=== PATIENT | male | born 1960 | race Caucasian/White ===

== ENCOUNTER 2018-08-08 03:39 | Inpatient (IN) | payer BC, OTHER ==
[~2018-08-08] VITALS: Ht 177.8 cm; Wt 77.1 kg
--- NOTE | 2018-08-08 03:50 | NUR ---
Pt to room via w/c on O2. pt getting dressed in room with family member and tech assist.
--- NOTE | 2018-08-08 03:55 | NUR ---
Pt O2 sat in 50's and 60's on NC. Pt placed on 15L non rebreather, pt O2 sat slowly rising. MD to see pt RUDI.
--- NOTE | 2018-08-08 03:59 | NUR ---
MD to bedside for pt eval.
--- NOTE | 2018-08-08 04:15 | NUR ---
Pt and pt SO report pt having fever, cough, and diarrhea since . pt SO states a few days after sx started pt SO noted pt breathing shallow. Pt states breathing continued to be difficulty after fever "broke" and cough continued as well. pt states sputum clear. Pt states he came in "because I couldn't take it anymore." pt smokes daily and drinks daily, denies withdrawal hx. pt conversing well but increased WOB noted. Pt a/ox4, calm and pleasant.
--- NOTE | 2018-08-08 04:20 | NUR ---
MAYANKG completed. Addendum: 08/08/18 at 0555 by REGGIE By ALLIE Reyes.
--- NOTE | 2018-08-08 04:22 | NUR ---
IV placed, blood drawn, first set of blood cultures drawn. Pt continues on monitor, pt continues with increased WOB, 15L via nonrebreather. SO at bedside. pt calm and cooperative.
--- NOTE | 2018-08-08 04:29 | NUR ---
Pt moved to trauma 3 room for intubation. Provider to bedside for pt update and education about intubation, pt verbalized understanding of MD explanation. Second IV in progress. RT to bedside.
[2018-08-08] MEDS ORDERED: AZITHROMYCIN 500 MG in SODIUM CHLORIDE 0.9% 250 ML IVPB ONE (04:30)
[2018-08-08] MEDS ORDERED: CEFTRIAXONE PMX 1GM/50ML 50 ML IV ONE (04:30)
[2018-08-08] MEDS ORDERED: SODIUM CHLORIDE 0.9% 1,000ML IVBOLUS ONE (04:30)
[2018-08-08] MEDS ORDERED: ASPIRIN 81 MG TABLET CHEW PO ONE (04:30)
[2018-08-08 04:33] LABS: BASOPHILS # (AUTO) 0.01 x10^3/uL (0-0.1); BASOPHILS % (AUTO) 0 % (0-1); EOSINOPHILS % (AUTO) 0 % (1-7); LYMPHOCYTES # (AUTO) 0.31 x10^3/uL (1-3.4); LYMPHOCYTES % (AUTO) 5 % (22-44); MD NO; MEAN CORPUSCULAR HEMOGLOBIN 33.9 pg (27.5-34.5); MEAN PLATELET VOLUME 7.1 fL (7.4-10.4); MONOCYTES # (AUTO) 0.05 x10^3/uL (0.2-0.8); MONOCYTES % (AUTO) 1 % (2-9); NEUTROPHILS # (AUTO) 6.09 x10^3/uL (1.8-6.8); NEUTROPHILS % (AUTO) 94 % (42-75); PLATELET COUNT 156 x10^3/uL (130-400); RED BLOOD COUNT 4.21 x10^6/uL (4.38-5.82); RED CELL DISTRIBUTION WIDTH 13.2 % (9.4-14.8)
--- NOTE | 2018-08-08 04:37 | NUR ---
REPORT FROM MAURO HIGH FLOWM O2 PLACED BY RT, PT IN NAD AT THIS TIME TALKATIVE AND PLEASENT
--- NOTE | 2018-08-08 04:38 | NUR ---
Second IV in place. Lab at bedside for second set of BC and ABG.
--- NOTE | 2018-08-08 04:40 | NUR ---
Report to Sandi ALCANTAR who will assume care of pt.
[2018-08-08] MEDS ORDERED: CEFTRIAXONE PMX 1GM/50ML 50 ML ONE (04:41)
[2018-08-08] MEDS ORDERED: ASPIRIN 81 MG TABLET CHEW ONE (04:41)
[2018-08-08 04:46] LABS: ALBUMIN 2.9 g/dL (3.4-5.0); ANION GAP 16 mmol/L (5-15); CALCIUM 7.6 mg/dL (8.5-10.1); CHLORIDE 80 mmol/L (98-107)
[2018-08-08 04:52] LABS: RAPID INFLUENZA A Negative (Negative); RAPID INFLUENZA B Negative (Negative)
[2018-08-08 04:53] LABS: CREATININE 0.76 mg/dL (0.7-1.3); TROPONIN I < 0.015 ng/mL (0.000-0.045)
[2018-08-08] MEDS ORDERED: ONDANSETRON 2MG/ML, 2ML ONE (04:58)
--- NOTE | 2018-08-08 05:20 | NUR ---
PT RESTING NAD AT THIS TIME VSS
[2018-08-08 05:34] LABS: ALANINE AMINOTRANSFERASE 19 U/L (12-78); ALBUMIN 2.5 g/dL (3.4-5.0); ANION GAP 12 mmol/L (5-15); CALCIUM 7.3 mg/dL (8.5-10.1); CHLORIDE 84 mmol/L (98-107); CREATININE 0.71 mg/dL (0.7-1.3)
[2018-08-08 05:36] LABS: ALKALINE PHOSPHATASE 42 U/L (45-117); BILIRUBIN,TOTAL 0.4 mg/dL (0.2-1.0); TOTAL PROTEIN 5.8 g/dL (6.4-8.2)
[2018-08-08] MEDS ORDERED: OMNIPAQUE 350 MG/ML, 100ML BOTTLE ONE (06:00)
--- NOTE | 2018-08-08 06:20 | NUR ---
PT TO AND BACK FROM CT IN NAD
[2018-08-08] MEDS ORDERED: SODIUM CHLORIDE 0.9% 1,000 ML IV SCH (07:14)
--- NOTE | 2018-08-08 07:21 | NUR ---
Report given to [facility]. Awaiting Dr. Myles for admit orders.
--- NOTE | 2018-08-08 07:27 | NUR ---
Pt's SPO2 decreased to 90%, optiflow cannula readjusted. RT Junior aware,sats improved after readjustment.
[2018-08-08] MEDS ORDERED: POLYETHYLENE GLYCOL 17 GM PACKET PO PRN (07:30)
[2018-08-08] MEDS ORDERED: BISACODYL 10 MG SUPP PR PRN ×2 (07:30→18:30)
[2018-08-08] MEDS ORDERED: PANTOPRAZOLE 40 MG IV IVPush SCH (07:30)
--- NOTE | 2018-08-08 07:54 | NUR ---
Late entry: Took pt for CT head prior to transfer to CCU.
[2018-08-08 07:57] LABS: THYROID STIMULATING HORMONE 0.528 mIU/L (0.358-3.740)
[2018-08-08] MEDS ORDERED: SUCCINYLCHOLINE 20 MG/ML, 10ML ONE (08:00)
[2018-08-08] MEDS ORDERED: PROPOFOL 10 MG/ML, 100ML IV ONE (08:00)
[2018-08-08] MEDS ORDERED: MIDAZOLAM 1 MG/ML, 5ML ONE ×2 (08:00→18:27)
[2018-08-08] MEDS ORDERED: POTASSIUM CHLORIDE 40 MEQ in SODIUM CHLORIDE 0.9% 500 ML IV ONE (08:30)
[2018-08-08] MEDS ORDERED: CALCIUM GLUCONATE 9.2 MEQ in SODIUM CHLORIDE 0.9% 100 ML IV ONE (08:30)
[2018-08-08 09:19] LABS: ANION GAP 13 mmol/L (5-15); CALCIUM 7.5 mg/dL (8.5-10.1); CHLORIDE 86 mmol/L (98-107)
[2018-08-08] MEDS ORDERED: MAGNESIUM SULFATE PMX 4GM/100M 100 ML IV ONE (09:30)
[2018-08-08] MEDS: POTASSIUM CHLORIDE 20 MEQ TAB.ER.PRT PO SCH ×2 (09:50→17:00)
[2018-08-08] MEDS ORDERED: POTASSIUM CHLORIDE 20 MEQ, MAGNESIUM SULFATE 1 GM, FOLIC ACID 1 MG, THIAMINE 200 MG, MV... IV SCH (10:00)
[2018-08-08 10:30] LABS: POTASSIUM,URINE RANDOM 2 mmol/L
[2018-08-08 10:43] LABS: CHLORIDE,URINE RANDOM < 10 mmol/L; SODIUM,URINE RANDOM < 5 mmol/L
[2018-08-08 10:51] LABS: MICROSCOPIC INDICATED
[2018-08-08 10:58] VITALS: BP 140/76
[2018-08-08 11:18] VITALS: BP 123/74
[2018-08-08 11:30] LABS: OSMOLALITY,URINE 185 mOsm/kg (500-850)
[2018-08-08 13:26] LABS: HCT (SEDRATE) 38.9 % (39.2-51.8)
[2018-08-08 13:27] LABS: ANION GAP 10 mmol/L (5-15); CALCIUM 7.6 mg/dL (8.5-10.1); CHLORIDE 91 mmol/L (98-107); CREATININE 0.54 mg/dL (0.7-1.3)
[2018-08-08] MEDS ORDERED: THIAMINE 200 MG in SODIUM CHLORIDE 0.9% 50 ML IV ONE (17:00)
[2018-08-08 17:33] LABS: ANION GAP 11 mmol/L (5-15); CALCIUM 7.4 mg/dL (8.5-10.1); CHLORIDE 93 mmol/L (98-107)
[2018-08-08] MEDS ORDERED: SODIUM CHLORIDE 0.45% 1,000 ML IV SCH (18:00)
[2018-08-08] MEDS ORDERED: FENTANYL PF 100 MCG/2ML ONE (18:08)
[2018-08-08] MEDS: FENTANYL PF 100 MCG/2ML IVPush PRN ×2 (18:15→19:48)
[2018-08-08] MEDS ORDERED: PROPOFOL 100 ML IV PRN (18:24)
[2018-08-08] MEDS ORDERED: PHARMACY MAY ADJ FOR RENAL FX MC SCH (18:30)
[2018-08-08] MEDS ORDERED: LACTULOSE 20 GM/30 ML UDC NG PRN (18:30)
[2018-08-08] MEDS ORDERED: SENNA/DOCUSATE TABLET NG PRN (18:30)
[2018-08-08] MEDS: FAMOTIDINE 20 MG/2 ML IV SCH (18:30)
[2018-08-08] MEDS ORDERED: SENNOSIDES 8.8 MG/5 ML ORAL SOL NG PRN (18:30)
[2018-08-08] MEDS ORDERED: MIDAZOLAM 1 MG/ML, 2ML IVPush ONE (18:30)
[2018-08-08] MEDS: ALBUTEROL/IPRATROPIUM 2.5MG/0.5MG, 3 ML INLINE SCH ×2 (18:44→22:19)
[2018-08-08] MEDS ORDERED: VECURONIUM 10 MG ONE (18:48)
[2018-08-08] MEDS: MIDAZOLAM 1 MG/ML, 2ML IVPush PRN ×2 (19:45→22:48)
[2018-08-08 21:47] LABS: ANION GAP 8 mmol/L (5-15); CALCIUM 7.2 mg/dL (8.5-10.1); CHLORIDE 93 mmol/L (98-107); CREATININE 0.72 mg/dL (0.7-1.3)
[2018-08-08] MEDS ORDERED: SODIUM CHLORIDE 0.9% 1,000 ML IV PRN (22:30)
[2018-08-08] MEDS: LIDOCAINE-MPF 1%, 2ML ENDO PRN (22:37)
[2018-08-08] MEDS: ACETAMINOPHEN 325 MG TABLET PO PRN (23:37)
[2018-08-09 00:35] LABS: ANION GAP 11 mmol/L (5-15); CALCIUM 7.3 mg/dL (8.5-10.1); CHLORIDE 93 mmol/L (98-107); CREATININE 0.73 mg/dL (0.7-1.3)
[2018-08-09] MEDS: MIDAZOLAM 1 MG/ML, 2ML IVPush PRN ×3 (00:49→06:36)
[2018-08-09] MEDS: LIDOCAINE-MPF 1%, 2ML ENDO PRN ×2 (01:48→22:04)
[2018-08-09] MEDS: MIDAZOLAM HCL 25 MG in SODIUM CHLORIDE 0.9% 245 ML IV PRN ×2 (02:08→07:19)
[2018-08-09] MEDS: ALBUTEROL/IPRATROPIUM 2.5MG/0.5MG, 3 ML INLINE SCH ×6 (02:23→22:04)
[2018-08-09] MEDS ORDERED: KETOROLAC 30 MG/1 ML IVPush ONE (02:30)
[2018-08-09 04:00] VITALS: BP 110/63
[2018-08-09] MEDS: CEFTRIAXONE PMX 1GM/50ML 50 ML IV SCH (04:26)
[2018-08-09 04:42] LABS: MEAN CORPUSCULAR HEMOGLOBIN 33.7 pg (27.5-34.5); MEAN CORPUSCULAR HGB CONC 34.4 g/dL (33.2-36.2); MEAN CORPUSCULAR VOLUME 97.8 fL (81-97); MEAN PLATELET VOLUME 6.7 fL (7.4-10.4); PLATELET COUNT 142 x10^3/uL (130-400); RED BLOOD COUNT 3.81 x10^6/uL (4.38-5.82); RED CELL DISTRIBUTION WIDTH 13.8 % (9.4-14.8)
[2018-08-09 04:53] LABS: CHLORIDE 94 mmol/L (98-107)
[2018-08-09 04:54] LABS: ALANINE AMINOTRANSFERASE 19 U/L (12-78); ALBUMIN 2.4 g/dL (3.4-5.0); ANION GAP 9 mmol/L (5-15); CALCIUM 7.2 mg/dL (8.5-10.1); CREATININE 0.75 mg/dL (0.7-1.3)
[2018-08-09 04:56] LABS: ALKALINE PHOSPHATASE 42 U/L (45-117); BILIRUBIN,TOTAL 0.5 mg/dL (0.2-1.0); TOTAL PROTEIN 5.8 g/dL (6.4-8.2)
[2018-08-09 04:59] LABS: BASOPHILS % (AUTO) 0 % (0-1); EOSINOPHILS # (AUTO) 0.01 x10^3/uL (0-0.4); EOSINOPHILS % (AUTO) 0 % (1-7); LYMPHOCYTES # (AUTO) 0.16 x10^3/uL (1-3.4); LYMPHOCYTES % (AUTO) 3 % (22-44); MD SCAN; MONOCYTES # (AUTO) 0.06 x10^3/uL (0.2-0.8); MONOCYTES % (AUTO) 1 % (2-9); NEUTROPHILS # (AUTO) 5.57 x10^3/uL (1.8-6.8); NEUTROPHILS % (AUTO) 96 % (42-75)
[2018-08-09] MEDS ORDERED: POTASSIUM CHLORIDE 40 MEQ in SODIUM CHLORIDE 0.9% 500 ML IV ONE (05:00)
[2018-08-09] MEDS ORDERED: SODIUM CHLORIDE 0.9% 1,000 ML IV SCH (05:00)
[2018-08-09] MEDS ORDERED: POTASSIUM PHOSPHATE 44 MEQ in SODIUM CHLORIDE 0.9% 500 ML IV ONE (05:00)
[2018-08-09] MEDS: AZITHROMYCIN 500 MG in SODIUM CHLORIDE 0.9% 250 ML IV SCH (05:25)
[2018-08-09] MEDS ORDERED: SODIUM CHLORIDE 0.9%, 500ML IVBOLUS ONE (06:00)
[2018-08-09] MEDS ORDERED: POTASSIUM CHLORIDE 40 MEQ in SODIUM CHLORIDE 0.9% 100 ML IV ONE (06:30)
[2018-08-09] MEDS: ACETAMINOPHEN 325 MG TABLET PO PRN ×2 (07:15→15:42)
[2018-08-09] MEDS: NOREPINEPHRINE 4 MG in SODIUM CHLORIDE 0.9% 246 ML IV PRN ×2 (07:49→22:25)
[2018-08-09] MEDS: POTASSIUM CHLORIDE 20 MEQ TAB.ER.PRT PO SCH (08:00)
[2018-08-09] MEDS: ENOXAPARIN 40 MG/0.4 ML SQ SCH (08:59)
[2018-08-09] MEDS: FAMOTIDINE 20 MG/2 ML IV SCH ×2 (08:59→18:15)
[2018-08-09 09:02] LABS: ANION GAP 8 mmol/L (5-15); CALCIUM 6.9 mg/dL (8.5-10.1); CHLORIDE 97 mmol/L (98-107); CREATININE 0.68 mg/dL (0.7-1.3)
[2018-08-09] MEDS: DIAZEPAM 5 MG/ML, 10ML VIAL IV PRN ×3 (10:44→22:13)
[2018-08-09] MEDS: QUETIAPINE 25MG TABLET PO SCH ×2 (10:44→18:14)
[2018-08-09] MEDS: DIAZEPAM 5 MG/ML, 2ML IV SCH ×4 (10:52→22:25)
[2018-08-09] MEDS: MIDAZOLAM HCL 50 MG in SODIUM CHLORIDE 0.9% 240 ML IV PRN ×2 (11:09→18:14)
[2018-08-09 12:29] LABS: ANION GAP 10 mmol/L (5-15); CALCIUM 6.8 mg/dL (8.5-10.1); CHLORIDE 100 mmol/L (98-107); CREATININE 0.59 mg/dL (0.7-1.3)
[2018-08-09 13:46] LABS: AMPHETAMINE SCREEN, URINE Negative (Negative); BARBITURATE SCREEN, URINE Negative (Negative); BENZODIAZEPINE SCREEN, URINE Negative (Negative); CANNABINOID SCREEN, URINE Positive (Negative); COCAINE SCREEN, URINE Negative (Negative); METHADONE SCREEN, URINE Negative (Negative); OPIATE SCREEN, URINE Negative (Negative)
[2018-08-09] MEDS: MVI ADULT 10 ML, THIAMINE 200 MG, FOLIC ACID 1 MG in SODIUM CHLORIDE 0.45% 1,000 ML IV SCH (13:56)
[2018-08-09] MEDS ORDERED: SODIUM CHLORIDE 0.45% 1,000 ML IV SCH (18:00)
[2018-08-09 18:52] LABS: ANION GAP 11 mmol/L (5-15); CALCIUM 6.5 mg/dL (8.5-10.1); CHLORIDE 99 mmol/L (98-107); CREATININE 0.57 mg/dL (0.7-1.3)
[2018-08-09 22:27] LABS: ANION GAP 7 mmol/L (5-15); CALCIUM 7.2 mg/dL (8.5-10.1); CHLORIDE 100 mmol/L (98-107); CREATININE 0.55 mg/dL (0.7-1.3)
[2018-08-09] MEDS ORDERED: SODIUM CHLORIDE 0.45% 1,000 ML IV PRN (22:30)
[2018-08-10] MEDS: ACETAMINOPHEN 325 MG TABLET PO PRN ×5 (00:39→21:53)
[2018-08-10] MEDS: LIDOCAINE-MPF 1%, 2ML ENDO PRN ×2 (01:35→17:00)
[2018-08-10 02:27] LABS: ANION GAP 9 mmol/L (5-15); CHLORIDE 101 mmol/L (98-107); CREATININE 0.58 mg/dL (0.7-1.3)
[2018-08-10] MEDS: QUETIAPINE 25MG TABLET PO SCH ×3 (02:34→19:04)
[2018-08-10] MEDS: ALBUTEROL/IPRATROPIUM 2.5MG/0.5MG, 3 ML INLINE SCH ×6 (03:01→22:31)
[2018-08-10 04:00] VITALS: BP 115/61
[2018-08-10] MEDS: CEFTRIAXONE PMX 1GM/50ML 50 ML IV SCH (04:43)
[2018-08-10] MEDS: DIAZEPAM 5 MG/ML, 2ML IV SCH ×4 (04:48→21:56)
[2018-08-10] MEDS: AZITHROMYCIN 500 MG in SODIUM CHLORIDE 0.9% 250 ML IV SCH (05:29)
[2018-08-10] MEDS: FENTANYL PF 100 MCG/2ML IVPush PRN ×3 (05:35→14:20)
[2018-08-10 06:02] LABS: CHLORIDE 100 mmol/L (98-107)
[2018-08-10 06:17] LABS: ANION GAP 12 mmol/L (5-15); CALCIUM 7.2 mg/dL (8.5-10.1); CREATININE 0.56 mg/dL (0.7-1.3)
[2018-08-10] MEDS: FAMOTIDINE 20 MG/2 ML IV SCH ×2 (06:44→19:04)
[2018-08-10 07:26] LABS: BASOPHILS # (AUTO) 0.01 x10^3/uL (0-0.1); BASOPHILS % (AUTO) 0 % (0-1); EOSINOPHILS % (AUTO) 1 % (1-7); LYMPHOCYTES # (AUTO) 0.31 x10^3/uL (1-3.4); LYMPHOCYTES % (AUTO) 4 % (22-44); MD NO; MEAN CORPUSCULAR HEMOGLOBIN 33.5 pg (27.5-34.5); MEAN CORPUSCULAR HGB CONC 34.4 g/dL (33.2-36.2); MEAN CORPUSCULAR VOLUME 97.6 fL (81-97); MEAN PLATELET VOLUME 6.8 fL (7.4-10.4); MONOCYTES # (AUTO) 0.07 x10^3/uL (0.2-0.8); MONOCYTES % (AUTO) 1 % (2-9); NEUTROPHILS # (AUTO) 7.69 x10^3/uL (1.8-6.8); NEUTROPHILS % (AUTO) 94 % (42-75); PLATELET COUNT 158 x10^3/uL (130-400); RED BLOOD COUNT 3.59 x10^6/uL (4.38-5.82); RED CELL DISTRIBUTION WIDTH 14.1 % (9.4-14.8)
[2018-08-10] MEDS ORDERED: POTASSIUM PHOSPHATE 44 MEQ in SODIUM CHLORIDE 0.9% 500 ML IV ONE (08:00)
[2018-08-10] MEDS: ENOXAPARIN 40 MG/0.4 ML SQ SCH (08:31)
--- NOTE | 2018-08-10 10:58 | NUR ---
TF GOAL: w/ propofol: PROMOTE @ 75ML/HR off propofol: PROMOTE @ 85ML/HR
[2018-08-10] MEDS: SODIUM CHLORIDE 0.45% 1,000 ML IV SCH (11:00)
[2018-08-10] MEDS: MVI ADULT 10 ML, THIAMINE 200 MG, FOLIC ACID 1 MG in SODIUM CHLORIDE 0.45% 1,000 ML IV SCH (14:08)
[2018-08-10 18:37] LABS: ANION GAP 7 mmol/L (5-15); CALCIUM 6.8 mg/dL (8.5-10.1); CHLORIDE 102 mmol/L (98-107); CREATININE 0.59 mg/dL (0.7-1.3)
[2018-08-11] MEDS: FENTANYL PF 100 MCG/2ML IVPush PRN ×4 (01:54→09:30)
[2018-08-11] MEDS: QUETIAPINE 25MG TABLET PO SCH ×3 (02:01→16:42)
[2018-08-11] MEDS: ALBUTEROL/IPRATROPIUM 2.5MG/0.5MG, 3 ML INLINE SCH ×6 (02:04→22:14)
[2018-08-11] MEDS: LIDOCAINE-MPF 1%, 2ML ENDO PRN ×3 (02:05→05:50)
[2018-08-11] MEDS: DIAZEPAM 5 MG/ML, 10ML VIAL IV PRN ×2 (02:20→09:26)
[2018-08-11 04:00] VITALS: BP 137/83
[2018-08-11] MEDS: SODIUM CHLORIDE 0.45% 1,000 ML IV SCH (04:00)
[2018-08-11] MEDS: CEFTRIAXONE PMX 1GM/50ML 50 ML IV SCH (04:14)
[2018-08-11 04:31] LABS: ANION GAP 6 mmol/L (5-15); CHLORIDE 103 mmol/L (98-107); CREATININE 0.45 mg/dL (0.7-1.3); TRIGLYCERIDES 143 mg/dL (50-200)
[2018-08-11 04:35] LABS: MEAN CORPUSCULAR HEMOGLOBIN 33.9 pg (27.5-34.5); MEAN CORPUSCULAR HGB CONC 34.4 g/dL (33.2-36.2); MEAN CORPUSCULAR VOLUME 98.5 fL (81-97); MEAN PLATELET VOLUME 7.8 fL (7.4-10.4); PLATELET COUNT 153 x10^3/uL (130-400); RED BLOOD COUNT 3.57 x10^6/uL (4.38-5.82); RED CELL DISTRIBUTION WIDTH 14.2 % (9.4-14.8)
[2018-08-11] MEDS: DIAZEPAM 5 MG/ML, 2ML IV SCH ×3 (05:03→16:30)
[2018-08-11] MEDS: AZITHROMYCIN 500 MG in SODIUM CHLORIDE 0.9% 250 ML IV SCH (05:06)
[2018-08-11] MEDS: ACETAMINOPHEN 325 MG TABLET PO PRN ×2 (05:16→11:39)
[2018-08-11 05:21] LABS: BASOPHILS % (AUTO) 0 % (0-1); EOSINOPHILS % (AUTO) 1 % (1-7); LYMPHOCYTES # (AUTO) 0.43 x10^3/uL (1-3.4); LYMPHOCYTES % (AUTO) 5 % (22-44); MD SCAN; MONOCYTES # (AUTO) 0.04 x10^3/uL (0.2-0.8); MONOCYTES % (AUTO) 1 % (2-9); NEUTROPHILS # (AUTO) 7.43 x10^3/uL (1.8-6.8); NEUTROPHILS % (AUTO) 93 % (42-75)
[2018-08-11] MEDS: MIDAZOLAM 1 MG/ML, 2ML IVPush PRN (05:52)
[2018-08-11] MEDS: FAMOTIDINE 20 MG/2 ML IV SCH ×2 (06:30→17:24)
[2018-08-11] MEDS ORDERED: CETACAINE 50ML TP PRN (07:00)
[2018-08-11] MEDS: POTASSIUM CHLORIDE 10% 20 MEQ/15 ML UDC PO SCH ×2 (08:10→20:35)
[2018-08-11] MEDS: ENOXAPARIN 40 MG/0.4 ML SQ SCH (08:10)
[2018-08-11] MEDS: FUROSEMIDE 20 MG/2 ML IV SCH ×2 (08:14→16:42)
[2018-08-11] MEDS: METHYLNALTREXONE 12 MG/0.6 ML SYR SQ SCH (09:22)
[2018-08-11] MEDS: FENTANYL PF 2,500 MCG in SODIUM CHLORIDE 0.9% 200 ML IV PRN (09:52)
[2018-08-11 12:53] LABS: ANA SCREEN NEGATIVE (Negative)
[2018-08-11] MEDS: MVI ADULT 10 ML, THIAMINE 200 MG, FOLIC ACID 1 MG in SODIUM CHLORIDE 0.45% 1,000 ML IV SCH (12:55)
[2018-08-11] MEDS: DIAZEPAM 5 MG/ML, 10ML VIAL IV SCH ×2 (17:00→23:37)
[2018-08-11] MEDS ORDERED: DIAZEPAM 5 MG/ML, 10ML VIAL IV SCH (17:00)
[2018-08-12] MEDS: ALBUTEROL/IPRATROPIUM 2.5MG/0.5MG, 3 ML INLINE SCH ×6 (02:16→22:07)
[2018-08-12] MEDS: QUETIAPINE 25MG TABLET PO SCH ×3 (02:24→14:00)
[2018-08-12 04:00] VITALS: BP 98/57
[2018-08-12] MEDS: CEFTRIAXONE PMX 1GM/50ML 50 ML IV SCH (04:34)
[2018-08-12 04:37] LABS: ANION GAP 9 mmol/L (5-15); CALCIUM 7.3 mg/dL (8.5-10.1); CHLORIDE 99 mmol/L (98-107); MEAN CORPUSCULAR HEMOGLOBIN 33.5 pg (27.5-34.5); MEAN CORPUSCULAR HGB CONC 34.4 g/dL (33.2-36.2); MEAN CORPUSCULAR VOLUME 97.4 fL (81-97); MEAN PLATELET VOLUME 7.2 fL (7.4-10.4); PLATELET COUNT 126 x10^3/uL (130-400); RED BLOOD COUNT 3.38 x10^6/uL (4.38-5.82); RED CELL DISTRIBUTION WIDTH 14.1 % (9.4-14.8)
[2018-08-12] MEDS: DIAZEPAM 5 MG/ML, 10ML VIAL IV SCH (05:11)
[2018-08-12] MEDS: AZITHROMYCIN 500 MG in SODIUM CHLORIDE 0.9% 250 ML IV SCH (05:12)
[2018-08-12] MEDS: ACETAMINOPHEN 325 MG TABLET PO PRN ×3 (05:12→23:14)
[2018-08-12 05:39] LABS: MD SCAN
[2018-08-12 05:40] LABS: BASOPHILS # (AUTO) 0.01 x10^3/uL (0-0.1); BASOPHILS % (AUTO) 0 % (0-1); EOSINOPHILS # (AUTO) 0.49 x10^3/uL (0-0.4); EOSINOPHILS % (AUTO) 6 % (1-7); LYMPHOCYTES # (AUTO) 0.78 x10^3/uL (1-3.4); LYMPHOCYTES % (AUTO) 9 % (22-44); MONOCYTES % (AUTO) 1 % (2-9); NEUTROPHILS % (AUTO) 83 % (42-75)
[2018-08-12] MEDS: FAMOTIDINE 20 MG/2 ML IV SCH ×2 (07:16→16:46)
[2018-08-12] MEDS: ENOXAPARIN 40 MG/0.4 ML SQ SCH (07:50)
[2018-08-12] MEDS: FUROSEMIDE 20 MG/2 ML IV SCH ×2 (07:50→16:45)
[2018-08-12] MEDS: MVI ADULT 10 ML, THIAMINE 200 MG, FOLIC ACID 1 MG in SODIUM CHLORIDE 0.45% 1,000 ML IV SCH (15:16)
[2018-08-12] MEDS: FENTANYL PF 2,500 MCG in SODIUM CHLORIDE 0.9% 200 ML IV PRN (16:45)
[2018-08-13] MEDS: ALBUTEROL/IPRATROPIUM 2.5MG/0.5MG, 3 ML INLINE SCH ×6 (01:58→22:29)
[2018-08-13] MEDS: QUETIAPINE 25MG TABLET PO SCH ×2 (02:10→10:30)
[2018-08-13 04:00] VITALS: BP 123/67
[2018-08-13 04:40] LABS: BASOPHILS # (AUTO) 0.02 x10^3/uL (0-0.1); BASOPHILS % (AUTO) 0 % (0-1); EOSINOPHILS # (AUTO) 0.43 x10^3/uL (0-0.4); EOSINOPHILS % (AUTO) 4 % (1-7); LYMPHOCYTES # (AUTO) 0.82 x10^3/uL (1-3.4); LYMPHOCYTES % (AUTO) 8 % (22-44); MD NO; MEAN CORPUSCULAR HEMOGLOBIN 33.9 pg (27.5-34.5); MEAN CORPUSCULAR HGB CONC 34.6 g/dL (33.2-36.2); MEAN PLATELET VOLUME 7.1 fL (7.4-10.4); MONOCYTES # (AUTO) 0.33 x10^3/uL (0.2-0.8); MONOCYTES % (AUTO) 3 % (2-9); NEUTROPHILS # (AUTO) 8.14 x10^3/uL (1.8-6.8); NEUTROPHILS % (AUTO) 84 % (42-75); PLATELET COUNT 124 x10^3/uL (130-400); RED BLOOD COUNT 3.35 x10^6/uL (4.38-5.82); RED CELL DISTRIBUTION WIDTH 14.6 % (9.4-14.8)
[2018-08-13 04:47] LABS: ANION GAP 8 mmol/L (5-15); CALCIUM 7.4 mg/dL (8.5-10.1); CHLORIDE 100 mmol/L (98-107)
[2018-08-13] MEDS: CEFTRIAXONE PMX 1GM/50ML 50 ML IV SCH (05:28)
[2018-08-13] MEDS: AZITHROMYCIN 500 MG in SODIUM CHLORIDE 0.9% 250 ML IV SCH (05:59)
[2018-08-13] MEDS: FUROSEMIDE 20 MG/2 ML IV SCH ×2 (07:31→16:53)
[2018-08-13] MEDS: ENOXAPARIN 40 MG/0.4 ML SQ SCH (07:31)
[2018-08-13] MEDS: FAMOTIDINE 20 MG/2 ML IV SCH ×2 (07:41→16:52)
[2018-08-13] MEDS: THIAMINE 100MG TABLET PO SCH ×2 (09:00→20:32)
[2018-08-13] MEDS: POTASSIUM CHLORIDE 10% 40 MEQ/30 ML UDC PO SCH ×2 (09:11→20:32)
[2018-08-13] MEDS: METHYLNALTREXONE 12 MG/0.6 ML SYR SQ SCH (09:12)
[2018-08-13] MEDS: ACETAMINOPHEN 325 MG TABLET PO PRN ×2 (12:17→20:32)
[2018-08-14] MEDS: ALBUTEROL/IPRATROPIUM 2.5MG/0.5MG, 3 ML INLINE SCH ×2 (02:11→07:18)
[2018-08-14 04:00] VITALS: BP 151/78
[2018-08-14] MEDS: CEFTRIAXONE PMX 1GM/50ML 50 ML IV SCH (04:09)
[2018-08-14 04:30] LABS: BASOPHILS # (AUTO) 0.04 x10^3/uL (0-0.1); BASOPHILS % (AUTO) 0 % (0-1); EOSINOPHILS # (AUTO) 0.48 x10^3/uL (0-0.4); EOSINOPHILS % (AUTO) 5 % (1-7); LYMPHOCYTES # (AUTO) 0.66 x10^3/uL (1-3.4); LYMPHOCYTES % (AUTO) 7 % (22-44); MD NO; MEAN CORPUSCULAR HGB CONC 34.5 g/dL (33.2-36.2); MEAN CORPUSCULAR VOLUME 98.4 fL (81-97); MEAN PLATELET VOLUME 7.2 fL (7.4-10.4); MONOCYTES # (AUTO) 0.32 x10^3/uL (0.2-0.8); MONOCYTES % (AUTO) 3 % (2-9); NEUTROPHILS # (AUTO) 8.53 x10^3/uL (1.8-6.8); NEUTROPHILS % (AUTO) 85 % (42-75); PLATELET COUNT 171 x10^3/uL (130-400); RED BLOOD COUNT 3.51 x10^6/uL (4.38-5.82); RED CELL DISTRIBUTION WIDTH 14.3 % (9.4-14.8)
[2018-08-14 04:41] LABS: ANION GAP 8 mmol/L (5-15); CALCIUM 7.4 mg/dL (8.5-10.1); CHLORIDE 103 mmol/L (98-107)
[2018-08-14 04:45] LABS: CREATININE 0.49 mg/dL (0.7-1.3); TRIGLYCERIDES 172 mg/dL (50-200)
[2018-08-14] MEDS: AZITHROMYCIN 500 MG in SODIUM CHLORIDE 0.9% 250 ML IV SCH (05:00)
[2018-08-14] MEDS: FAMOTIDINE 20 MG/2 ML IV SCH ×2 (09:14→20:06)
[2018-08-14] MEDS: ENOXAPARIN 40 MG/0.4 ML SQ SCH (09:15)
[2018-08-14] MEDS: FUROSEMIDE 20 MG/2 ML IV SCH ×2 (09:15→18:21)
[2018-08-14] MEDS: THIAMINE 100MG TABLET PO SCH ×2 (09:21→20:06)
[2018-08-14] MEDS ORDERED: POTASSIUM CHLORIDE 10% 40 MEQ/30 ML UDC PO ONE (10:00)
[2018-08-14] MEDS ORDERED: GUAIFENESIN/COD200MG-20MG/10ML LIQUID PO ONE (10:00)
[2018-08-14] MEDS: ALBUTEROL/IPRATROPIUM 2.5MG/0.5MG, 3 ML NEB SCH ×4 (11:04→23:08)
[2018-08-14] MEDS ORDERED: GUAIFENESIN/COD200MG-20MG/10ML LIQUID PO PRN (14:00)
[2018-08-15] MEDS: ALBUTEROL/IPRATROPIUM 2.5MG/0.5MG, 3 ML NEB SCH ×5 (02:35→23:18)
[2018-08-15 04:00] VITALS: BP 136/73
[2018-08-15] MEDS: CEFTRIAXONE PMX 1GM/50ML 50 ML IV SCH (04:27)
[2018-08-15] MEDS: AZITHROMYCIN 500 MG in SODIUM CHLORIDE 0.9% 250 ML IV SCH (05:11)
[2018-08-15 06:28] LABS: BASOPHILS # (AUTO) 0.01 x10^3/uL (0-0.1); BASOPHILS % (AUTO) 0 % (0-1); EOSINOPHILS # (AUTO) 0.39 x10^3/uL (0-0.4); EOSINOPHILS % (AUTO) 4 % (1-7); LYMPHOCYTES % (AUTO) 8 % (22-44); MD NO; MEAN CORPUSCULAR HEMOGLOBIN 33.8 pg (27.5-34.5); MEAN CORPUSCULAR HGB CONC 34.7 g/dL (33.2-36.2); MEAN CORPUSCULAR VOLUME 97.6 fL (81-97); MEAN PLATELET VOLUME 7.1 fL (7.4-10.4); MONOCYTES # (AUTO) 0.36 x10^3/uL (0.2-0.8); MONOCYTES % (AUTO) 4 % (2-9); NEUTROPHILS # (AUTO) 7.97 x10^3/uL (1.8-6.8); NEUTROPHILS % (AUTO) 85 % (42-75); PLATELET COUNT 195 x10^3/uL (130-400); RED BLOOD COUNT 3.25 x10^6/uL (4.38-5.82); RED CELL DISTRIBUTION WIDTH 14.4 % (9.4-14.8)
[2018-08-15 06:39] LABS: CHLORIDE 103 mmol/L (98-107)
[2018-08-15 06:45] LABS: ANION GAP 5 mmol/L (5-15); CREATININE 0.44 mg/dL (0.7-1.3)
[2018-08-15] MEDS: FUROSEMIDE 20 MG/2 ML IV SCH ×2 (08:21→17:46)
[2018-08-15] MEDS: THIAMINE 100MG TABLET PO SCH ×2 (08:21→21:29)
[2018-08-15] MEDS: FAMOTIDINE 20 MG/2 ML IV SCH ×2 (08:21→21:29)
[2018-08-15] MEDS: ENOXAPARIN 40 MG/0.4 ML SQ SCH (08:21)
[2018-08-15] MEDS: METHYLNALTREXONE 12 MG/0.6 ML SYR SQ SCH (09:00)
[2018-08-15] MEDS: POTASSIUM CHLORIDE 20 MEQ TAB.ER.PRT PO SCH (12:34)
[2018-08-16] MEDS: ALBUTEROL/IPRATROPIUM 2.5MG/0.5MG, 3 ML NEB SCH ×5 (03:36→20:00)
[2018-08-16 04:28] LABS: ANION GAP 7 mmol/L (5-15); BASOPHILS # (AUTO) 0.03 x10^3/uL (0-0.1); BASOPHILS % (AUTO) 0 % (0-1); CALCIUM 7.7 mg/dL (8.5-10.1); CHLORIDE 100 mmol/L (98-107); CREATININE 0.47 mg/dL (0.7-1.3); EOSINOPHILS # (AUTO) 0.42 x10^3/uL (0-0.4); EOSINOPHILS % (AUTO) 4 % (1-7); LYMPHOCYTES # (AUTO) 0.87 x10^3/uL (1-3.4); LYMPHOCYTES % (AUTO) 8 % (22-44); MD NO; MEAN CORPUSCULAR HEMOGLOBIN 33.9 pg (27.5-34.5); MEAN CORPUSCULAR HGB CONC 34.5 g/dL (33.2-36.2); MEAN CORPUSCULAR VOLUME 98.3 fL (81-97); MEAN PLATELET VOLUME 7.6 fL (7.4-10.4); MONOCYTES # (AUTO) 0.62 x10^3/uL (0.2-0.8); MONOCYTES % (AUTO) 6 % (2-9); NEUTROPHILS # (AUTO) 9.37 x10^3/uL (1.8-6.8); NEUTROPHILS % (AUTO) 83 % (42-75); PLATELET COUNT 237 x10^3/uL (130-400); RED BLOOD COUNT 3.29 x10^6/uL (4.38-5.82)
[2018-08-16] MEDS: CEFTRIAXONE PMX 1GM/50ML 50 ML IV SCH (04:31)
[2018-08-16] MEDS: ACETAMINOPHEN 325 MG TABLET PO PRN ×2 (04:33→20:33)
[2018-08-16] MEDS: AZITHROMYCIN 500 MG in SODIUM CHLORIDE 0.9% 250 ML IV SCH (05:00)
[2018-08-16] MEDS: POTASSIUM CHLORIDE 20 MEQ TAB.ER.PRT PO SCH (08:51)
[2018-08-16] MEDS: FAMOTIDINE 20 MG/2 ML IV SCH ×2 (08:51→20:33)
[2018-08-16] MEDS: FUROSEMIDE 20 MG/2 ML IV SCH ×2 (08:51→17:40)
[2018-08-16] MEDS: THIAMINE 100MG TABLET PO SCH ×2 (08:51→20:33)
[2018-08-16] MEDS: ENOXAPARIN 40 MG/0.4 ML SQ SCH (08:54)
--- NOTE | 2018-08-16 14:00 | NUR ---
PATIENT FINANCIAL REP Recommend: Chopped/NTL -No straws -Up at 90 degrees -Meds whole [place] sheet posted at bedside Addendum: 08/16/18 at [address] Amended: Links added.
[2018-08-16 14:36] VITALS: BP 144/77
--- NOTE | 2018-08-16 14:59 | NUR ---
BLOCK TESTER recommend: CHOPPED/ NTL -No straws -Up for all meals orange sheet posted for diet recommendations Addendum: 08/16/18 at [address] Amended: Links added.
[2018-08-16 19:26] VITALS: BP 128/73
[2018-08-17 01:43] VITALS: BP 151/85
[2018-08-17] MEDS: CEFTRIAXONE PMX 1GM/50ML 50 ML IV SCH (04:19)
[2018-08-17 04:40] LABS: BASOPHILS # (AUTO) 0.01 x10^3/uL (0-0.1); BASOPHILS % (AUTO) 0 % (0-1); EOSINOPHILS # (AUTO) 0.17 x10^3/uL (0-0.4); EOSINOPHILS % (AUTO) 2 % (1-7); LYMPHOCYTES # (AUTO) 1.34 x10^3/uL (1-3.4); LYMPHOCYTES % (AUTO) 13 % (22-44); MD NO; MEAN CORPUSCULAR HEMOGLOBIN 33.5 pg (27.5-34.5); MEAN CORPUSCULAR HGB CONC 33.9 g/dL (33.2-36.2); MEAN CORPUSCULAR VOLUME 98.9 fL (81-97); MEAN PLATELET VOLUME 7.6 fL (7.4-10.4); MONOCYTES # (AUTO) 0.77 x10^3/uL (0.2-0.8); MONOCYTES % (AUTO) 7 % (2-9); NEUTROPHILS # (AUTO) 8.41 x10^3/uL (1.8-6.8); NEUTROPHILS % (AUTO) 79 % (42-75); PLATELET COUNT 308 x10^3/uL (130-400); RED BLOOD COUNT 3.52 x10^6/uL (4.38-5.82); RED CELL DISTRIBUTION WIDTH 13.9 % (9.4-14.8)
[2018-08-17 04:47] LABS: CHLORIDE 100 mmol/L (98-107)
[2018-08-17 04:53] LABS: ANION GAP 7 mmol/L (5-15); CREATININE 0.46 mg/dL (0.7-1.3)
[2018-08-17] MEDS: AZITHROMYCIN 500 MG in SODIUM CHLORIDE 0.9% 250 ML IV SCH (05:48)
[2018-08-17] MEDS: ALBUTEROL/IPRATROPIUM 2.5MG/0.5MG, 3 ML NEB SCH ×3 (07:16→14:29)
[2018-08-17 07:57] VITALS: BP 114/74
[2018-08-17] MEDS: FAMOTIDINE 20 MG/2 ML IV SCH ×2 (08:29→21:00)
[2018-08-17] MEDS: THIAMINE 100MG TABLET PO SCH ×2 (08:29→21:00)
[2018-08-17] MEDS: POTASSIUM CHLORIDE 20 MEQ TAB.ER.PRT PO SCH (08:29)
[2018-08-17] MEDS: ENOXAPARIN 40 MG/0.4 ML SQ SCH (08:29)
[2018-08-17] MEDS: FUROSEMIDE 20 MG/2 ML IV SCH ×2 (08:29→17:38)
[2018-08-17] MEDS ORDERED: METHYLNALTREXONE 12 MG/0.6 ML SYR SQ PRN (09:00)
--- NOTE | 2018-08-17 12:44 | NUR ---
COMPOSITE BOAT BUILDER recommend: REGULAR/ THINS -No straws -Up for all meals in chair -Small sips Addendum: 08/17/18 at [address] Amended: Links added.
[2018-08-17] MEDS: ACETAMINOPHEN 325 MG TABLET PO PRN (13:59)
[2018-08-17] MEDS ORDERED: ALBUTEROL/IPRATROPIUM 2.5MG/0.5MG, 3 ML NEB PRN (18:00)
[2018-08-17 18:48] VITALS: BP 107/70
[2018-08-18 00:47] VITALS: BP 132/81
[2018-08-18] MEDS: ACETAMINOPHEN 325 MG TABLET PO PRN ×2 (00:47→17:51)
[2018-08-18 05:53] LABS: BASOPHILS # (AUTO) 0.04 x10^3/uL (0-0.1); BASOPHILS % (AUTO) 0 % (0-1); EOSINOPHILS # (AUTO) 0.43 x10^3/uL (0-0.4); EOSINOPHILS % (AUTO) 4 % (1-7); LYMPHOCYTES # (AUTO) 1.46 x10^3/uL (1-3.4); LYMPHOCYTES % (AUTO) 15 % (22-44); MD NO; MEAN CORPUSCULAR HEMOGLOBIN 34.1 pg (27.5-34.5); MEAN CORPUSCULAR HGB CONC 34.9 g/dL (33.2-36.2); MEAN CORPUSCULAR VOLUME 97.7 fL (81-97); MEAN PLATELET VOLUME 7.6 fL (7.4-10.4); MONOCYTES # (AUTO) 0.83 x10^3/uL (0.2-0.8); MONOCYTES % (AUTO) 8 % (2-9); NEUTROPHILS # (AUTO) 7.36 x10^3/uL (1.8-6.8); NEUTROPHILS % (AUTO) 73 % (42-75); PLATELET COUNT 360 x10^3/uL (130-400); RED CELL DISTRIBUTION WIDTH 13.7 % (9.4-14.8)
[2018-08-18 06:04] LABS: CHLORIDE 103 mmol/L (98-107)
[2018-08-18 06:29] LABS: ANION GAP 9 mmol/L (5-15); CREATININE 0.44 mg/dL (0.7-1.3)
[2018-08-18 07:37] VITALS: BP 125/73
[2018-08-18] MEDS: ENOXAPARIN 40 MG/0.4 ML SQ SCH (07:39)
[2018-08-18] MEDS: FUROSEMIDE 20 MG/2 ML IV SCH ×2 (07:40→18:05)
[2018-08-18] MEDS: POTASSIUM CHLORIDE 20 MEQ TAB.ER.PRT PO SCH (09:43)
[2018-08-18] MEDS: THIAMINE 100MG TABLET PO SCH ×2 (09:43→20:26)
[2018-08-18] MEDS: FAMOTIDINE 20 MG/2 ML IV SCH (09:43)
[2018-08-18 20:20] VITALS: BP 107/65
[2018-08-18] MEDS: FAMOTIDINE 20 MG TABLET PO SCH (20:26)
[2018-08-19 01:36] VITALS: BP 144/78
[2018-08-19 05:51] LABS: CHLORIDE 103 mmol/L (98-107)
[2018-08-19 05:58] LABS: ANION GAP 7 mmol/L (5-15); CALCIUM 8.3 mg/dL (8.5-10.1)
[2018-08-19 06:01] LABS: BASOPHILS # (AUTO) 0.09 x10^3/uL (0-0.1); BASOPHILS % (AUTO) 1 % (0-1); EOSINOPHILS # (AUTO) 0.32 x10^3/uL (0-0.4); EOSINOPHILS % (AUTO) 3 % (1-7); LYMPHOCYTES # (AUTO) 1.59 x10^3/uL (1-3.4); LYMPHOCYTES % (AUTO) 16 % (22-44); MD NO; MEAN CORPUSCULAR HEMOGLOBIN 34.3 pg (27.5-34.5); MEAN CORPUSCULAR HGB CONC 34.8 g/dL (33.2-36.2); MEAN CORPUSCULAR VOLUME 98.7 fL (81-97); MEAN PLATELET VOLUME 7.2 fL (7.4-10.4); MONOCYTES # (AUTO) 1.11 x10^3/uL (0.2-0.8); MONOCYTES % (AUTO) 11 % (2-9); NEUTROPHILS % (AUTO) 69 % (42-75); PLATELET COUNT 432 x10^3/uL (130-400); RED BLOOD COUNT 3.44 x10^6/uL (4.38-5.82); RED CELL DISTRIBUTION WIDTH 13.8 % (9.4-14.8)
[2018-08-19 07:03] VITALS: BP 110/67
[2018-08-19] MEDS: ENOXAPARIN 40 MG/0.4 ML SQ SCH (07:50)
[2018-08-19] MEDS: FUROSEMIDE 20 MG/2 ML IV SCH (07:50)
[2018-08-19] MEDS: FAMOTIDINE 20 MG TABLET PO SCH (07:51)
[2018-08-19] MEDS: POTASSIUM CHLORIDE 20 MEQ TAB.ER.PRT PO SCH (07:51)
[2018-08-19] MEDS: THIAMINE 100MG TABLET PO SCH (07:51)
[2018-08-19] MEDS ORDERED: ALBU18HF INH ×3 (07:59→08:41)
[2018-08-19 14:47] VITALS: BP 110/72
== END 2018-08-19 19:09 | disposition home or self-care (01) | DRG 207 ==
LOC: ED 06:35 → EDIP 06:39 → CCU 07:53 → 3NE 08-16 14:20
PROVIDERS: ADMIT Hospitalist; ATTEND Hospitalist
PROC: 5A1955Z Respiratory Ventilation, Greater than 96 Consecutive Hours (ICD-10-PCS; principal; 2018-08-08)
PROC: 02HV33Z Insertion of Infusion Device into Superior Vena Cava, Percutaneous Approach (ICD-10-PCS; 2018-08-08)
PROC: B548ZZA Ultrasonography of Superior Vena Cava, Guidance (ICD-10-PCS; 2018-08-08)
PROC: 0B9D8ZX Drainage of Right Middle Lung Lobe, Via Natural or Artificial Opening Endoscopic, Diagnostic (ICD-10-PCS; 2018-08-08)
PROC: 0B9G8ZX Drainage of Left Upper Lung Lobe, Via Natural or Artificial Opening Endoscopic, Diagnostic (ICD-10-PCS; 2018-08-08)
PROC: 0BH18EZ Insertion of Endotracheal Airway into Trachea, Via Natural or Artificial Opening Endoscopic (ICD-10-PCS; 2018-08-08)
DX: J96.01 Acute respiratory failure with hypoxia (principal); G93.41 Metabolic encephalopathy; E43 Unspecified severe protein-calorie malnutrition; J18.9 Pneumonia, unspecified organism; K85.90 Acute pancreatitis without necrosis or infection, unspecified; Z99.11 Dependence on respirator [ventilator] status; E87.1 Hypo-osmolality and hyponatremia; E87.0 Hyperosmolality and hypernatremia; J81.1 Chronic pulmonary edema; I25.10 Atherosclerotic heart disease of native coronary artery without angina pectoris; Z95.5 Presence of coronary angioplasty implant and graft; F10.10 Alcohol abuse, uncomplicated; D64.9 Anemia, unspecified; E16.2 Hypoglycemia, unspecified; E83.42 Hypomagnesemia; E86.0 Dehydration; E86.1 Hypovolemia; E87.6 Hypokalemia; E87.8 Other disorders of electrolyte and fluid balance, not elsewhere classified; F17.200 Nicotine dependence, unspecified, uncomplicated; I25.2 Old myocardial infarction; Z80.3 Family history of malignant neoplasm of breast; Z82.5 Family history of asthma and other chronic lower respiratory diseases; Z68.24 Body mass index [BMI] 24.0-24.9, adult
CPT/HCPCS: 36415; 36600; 74230; 87400; 87806; 99291; J3490; J7042; J7620; 31622; 31624; 70450; 71045; 71275; 76700; 80047; 80048; 80053; 80307; 81001; 82040; 82330; 82436; 82803; 83605; 83690; 83735; 83880; 83935; 84100; 84133; 84300; 84443; 84478; 84484; 85025; 85651; 86038; 86430; 87015; 87040; 87070; 87081; 87102; 87116; 87205; 87206; 88108; 88112; 88312; 93005; 93306; 94002; 94003; 94150; 94640; 96365; 96368; G0378; J0456; J0610; J0696; J1650; J1885; J2250; J2704; J3010; J3360; J3411; J3475; J3480; Q9967; C9113; G0475; J0330; J1940; J7030; J7040; J7050